=== PATIENT | female | born 1980 | race Caucasian/White ===

== ENCOUNTER 2016-12-30 11:51 | Emergency (ER) | payer MEDICAID ==
[~2016-12-30] VITALS: Ht 170.2 cm; Wt 81.6 kg
[~2016-12-30 11:51] MED LIST: DICY20TA55 PO; EST1 PO; ONDA4TAB5 PO
[2016-12-30 12:03] VITALS: BP 153/98; PULSE 88; RESP 16; TEMP 98.2; O2SAT 100
[2016-12-30 13:21] LABS: BASOPHILS % (AUTO) 0.7 % (0.0-2.0); EOSINOPHILS # (AUTO) 0.7 K/uL (0.0-0.4); EOSINOPHILS % (AUTO) 10.5 % (0.0-4.0); HEMATOCRIT 45.1 % (36-48); HEMOGLOBIN 14.9 g/dL (12.0-16.0); LYMPHOCYTES # (AUTO) 1.8 K/uL (1.0-5.5); LYMPHOCYTES % (AUTO) 28.1 % (20.5-51.5); MEAN CORPUSCULAR HEMOGLOBIN 27 pg (27-31); MEAN CORPUSCULAR HGB CONC 33 % (32-36); MEAN CORPUSCULAR VOLUME 82 fL (79.0-98.0); MONOCYTES # (AUTO) 0.4 K/uL (0.0-1.0); NEUTROPHILS # (AUTO) 3.7 K/uL (1.8-7.7); NEUTROPHILS % (AUTO) 54.7 % (40.0-70.0); PLATELET COUNT (AUTO) 160 K/uL (130-430); RED BLOOD CELL COUNT(AUTO) 5.53 MIL/uL (4.2-6.2); RED CELL DISTRIBUTION WIDTH 12.5 % (9.0-15.0); WHITE BLOOD COUNT (AUTO) 6.6 K/uL (4.8-10.8)
[2016-12-30 13:34] LABS: CALCIUM 10.5 mg/dL (8.4-11.0); CREATININE 0.87 mg/dL (0.55-1.30)
[2016-12-30 13:38] LABS: ALBUMIN 4.4 g/dL (3.4-4.8); TOTAL BILIRUBIN 0.3 mg/dL (0.0-1.0); TOTAL PROTEIN, SERUM 8.8 g/dL (6.4-8.3)
[2016-12-30] MEDS ORDERED: PROCHLORPERAZINE EDISYLATE 10 MG/2 ML VIAL IVP ONE (14:15)
[2016-12-30] MEDS ORDERED: KETOROLAC TROMETHAMINE 30 MG VIAL IVP ONE (14:15)
[2016-12-30 16:04] LABS: BILIRUBIN,URINE NEGATIVE (NEGATIVE); BLOOD, URINE NEGATIVE (NEGATIVE); CLARITY/URINE HAZY (CLEAR); COLOR,URINE YELLOW (YELLOW); GLUCOSE,URINE NEGATIVE (NEGATIVE); KETONES,URINE NEGATIVE (NEGATIVE); LEUKOCYTE ESTERASE ,URINE TRACE (NEGATIVE); NITRITE, URINE NEGATIVE (NEGATIVE); PH,URINE 5.5 (5.0-8.0); PROTEIN URINE NEGATIVE (NEGATIVE); UROBILINOGEN,URINE 0.2 (0.2-1.0)
[2016-12-30 16:39] LABS: BACTERIA,URINE MODERATE /HPF (None Seen); RBC,URINE NONE SEEN /HPF (0-3)
[2016-12-30 16:40] VITALS: BP 148/88; PULSE 79; RESP 16; TEMP 98.2; O2SAT 100
[2016-12-30 16:40] LABS: MUCUS,URINE 1+ /LPF (None Seen)
== END 2016-12-30 16:40 | disposition home or self-care (01) ==
LOC: SED 11:51
DX: K58.9 Irritable bowel syndrome, unspecified (principal); F41.9 Anxiety disorder, unspecified
CPT/HCPCS: 36415; 74176; 80053; 81000; 82150; 83690; 85025; 87086; 96374; 96375; 99285; J0780; J1885

== ENCOUNTER 2017-02-07 10:21 | Emergency (ER) | payer MEDICAID ==
[~2017-02-07] VITALS: Ht 170.2 cm; Wt 90.7 kg
[2017-02-07 10:28] VITALS: BP 137/96; PULSE 82; RESP 18; TEMP 97; O2SAT 97
--- NOTE | 2017-02-07 10:39 | NUR ---
Pt states that she ate some wax thinking it was dark chocolate. Mother with pt presents scented black wax in wafer form with a small piece bitten off. Pt c/o N/V/D. Denies c/o abdominal pain or discomfort. Denies ALOC or neurodeficits.
--- NOTE | 2017-02-07 10:39 | NUR ---
Patient to ER bed 6 to gown for evaluation. Side rails up. Report given to Mack MARTIN.
[2017-02-07] MEDS ORDERED: ONDANSETRON HCL 4 MG/2 ML VIAL IVP ONE (10:45)
--- NOTE | 2017-02-07 10:45 | NUR ---
# 20 gauge angiocath placed to LAC. Use of asceptic technique. Opsite placed over site. Blood return noted. Blood for lab drawn from site. Flushed with 10 cc of normal saline. No evidence of infiltration noted. Patient tolerated well.
[2017-02-07 10:57] LABS: BASOPHILS % (AUTO) 0.6 % (0.0-2.0); EOSINOPHILS # (AUTO) 0.7 K/uL (0.0-0.4); EOSINOPHILS % (AUTO) 9.6 % (0.0-4.0); HEMATOCRIT 43.4 % (36-48); HEMOGLOBIN 14.2 g/dL (12.0-16.0); LYMPHOCYTES # (AUTO) 2.2 K/uL (1.0-5.5); LYMPHOCYTES % (AUTO) 31.6 % (20.5-51.5); MEAN CORPUSCULAR HEMOGLOBIN 27 pg (27-31); MEAN CORPUSCULAR HGB CONC 33 % (32-36); MEAN CORPUSCULAR VOLUME 82 fL (79.0-98.0); MONOCYTES # (AUTO) 0.4 K/uL (0.0-1.0); MONOCYTES % (AUTO) 5.3 % (1.7-9.3); NEUTROPHILS # (AUTO) 3.8 K/uL (1.8-7.7); NEUTROPHILS % (AUTO) 52.9 % (40.0-70.0); PLATELET COUNT (AUTO) 188 K/uL (130-430); RED BLOOD CELL COUNT(AUTO) 5.26 MIL/uL (4.2-6.2); RED CELL DISTRIBUTION WIDTH 13.3 % (9.0-15.0); WHITE BLOOD COUNT (AUTO) 7.1 K/uL (4.8-10.8)
--- NOTE | 2017-02-07 10:59 | NUR ---
ER Dr. Levy at bedside examining patient.
[2017-02-07 11:01] LABS: ANION GAP 7 (5-15); CALCIUM 9.8 mg/dL (8.4-11.0); CHLORIDE 103 mmol/L (98-107); CREATININE 0.82 mg/dL (0.55-1.30); GLUCOSE 134 mg/dL (70-99); SODIUM SERUM 140 mmol/L (136-145); UREA NITROGEN, BLOOD 17 mg/dL (8-21)
[2017-02-07 11:03] LABS: GFR AFRICAN AMERICAN 103 mL/min (>90)
[2017-02-07 11:08] LABS: ALANINE AMINOTRANSFERASE 68 U/L (12-78); ALBUMIN 4.2 g/dL (3.4-4.8); ALCOHOL, BLOOD < 3 mg/dL (<10); ASPARTATE AMINOTRANSFERASE 29 U/L (10-37); SALICYLATE 1 mg/dL (3-30); TOTAL BILIRUBIN 0.3 mg/dL (0.0-1.0); TOTAL PROTEIN, SERUM 8.3 g/dL (6.4-8.3)
[2017-02-07 11:09] LABS: ACETAMINOPHEN < 1 ug/mL (1-30)
[2017-02-07] MEDS ORDERED: PROCHLORPERAZINE EDISYLATE 10 MG/2 ML VIAL IVP ONE (12:00)
[2017-02-07 12:35] VITALS: BP 131/62; PULSE 78; RESP 18; TEMP 98; O2SAT 97
--- NOTE | 2017-02-07 12:38 | NUR ---
Patient given written and verbal discharge instructions and verbalizes understanding. ER MD DR. CUEVAS discussed with patient the results and treatment provided. Patient in stable condition. ID arm band removed. IV catheter removed intact and dressing applied, no active bleeding. Rx of ZOFRAN given. Patient educated on pain management and to follow up with PMD. Pain Scale 0/10 Opportunity for questions provided and answered.
== END 2017-02-07 12:35 | disposition home or self-care (01) ==
LOC: SED 10:21
DX: T52.0X1A Toxic effect of petroleum products, accidental (unintentional), initial encounter (principal); F41.9 Anxiety disorder, unspecified; R03.0 Elevated blood-pressure reading, without diagnosis of hypertension; F84.0 Autistic disorder; F32.9 Major depressive disorder, single episode, unspecified; Y92.89 Other specified places as the place of occurrence of the external cause
CPT/HCPCS: 36415; 80053; 85025; 93005; 96374; 96375; 99285; G0480; G0481; G0482; J0780; J2405

== ENCOUNTER 2017-05-07 19:26 | Emergency (ER) | payer MEDICAID ==
[~2017-05-07] VITALS: Ht 170.2 cm; Wt 95.3 kg
[2017-05-07 19:33] VITALS: BP 145/90; PULSE 82; RESP 16; TEMP 97.5; O2SAT 99
--- NOTE | 2017-05-07 19:34 | NUR ---
Placed in H1 . Placed to gown for exam. Side rails up. Report given to VERONICA Hou.
[2017-05-07] MEDS ORDERED: LORazepam 1 MG TABLET PO ONE (20:00)
--- NOTE | 2017-05-07 20:00 | NUR ---
DR. SHELDON AT BEDSIDE EXAMINING THE PT.
--- NOTE | 2017-05-07 20:05 | NUR ---
PT. TO ER AAOx4 states that she had anxiety/ panic attack at home, c/o mild abdominal discomfort, clear speech follows commands, denies n/v/d denies headaches denies chest pain
[2017-05-07 21:05] LABS: BILIRUBIN,URINE NEGATIVE (NEGATIVE); BLOOD, URINE TRACE (NEGATIVE); CLARITY/URINE HAZY (CLEAR); COLOR,URINE YELLOW (YELLOW); GLUCOSE,URINE NEGATIVE (NEGATIVE); KETONES,URINE NEGATIVE (NEGATIVE); LEUKOCYTE ESTERASE ,URINE 1+ (NEGATIVE); NITRITE, URINE NEGATIVE (NEGATIVE); PROTEIN URINE NEGATIVE (NEGATIVE); UROBILINOGEN,URINE 0.2 (0.2-1.0)
[2017-05-07 21:09] LABS: RBC,URINE 0-3 /HPF (0-3)
[2017-05-07 21:10] LABS: BACTERIA,URINE MANY /HPF (None Seen); MUCUS,URINE 1+ /LPF (None Seen); WBC,URINE 80-100 /HPF (0-3)
[2017-05-07 21:15] VITALS: BP 121/74; PULSE 79; RESP 16; TEMP 98.1; O2SAT 99
--- NOTE | 2017-05-07 21:15 | NUR ---
Patient given written and verbal discharge instructions and verbalizes understanding. ER MD Dr. Newberry discussed with patient the results and treatment provided. Patient in stable condition. ID arm band removed. Rx of macrodantin given. Patient educated on pain management and to follow up with PMD. Pain Scale 0/10 Opportunity for questions provided and answered.
== END 2017-05-07 21:15 | disposition home or self-care (01) ==
LOC: SED 19:26
DX: F41.9 Anxiety disorder, unspecified (principal); N39.0 Urinary tract infection, site not specified; F32.9 Major depressive disorder, single episode, unspecified
CPT/HCPCS: 81000-TC; 87086; 99284

== ENCOUNTER 2018-03-24 10:36 | Emergency (ER) | payer MEDICAID ==
[~2018-03-24] VITALS: Ht 170.2 cm; Wt 90.7 kg
[2018-03-24 10:44] VITALS: BP_SYST 153
[2018-03-24 11:51] VITALS: BP_SYST 144
== END 2018-03-24 11:51 | disposition home or self-care (01) ==
LOC: SED 10:36
DX: B34.9 Viral infection, unspecified (principal); Z90.710 Acquired absence of both cervix and uterus
CPT/HCPCS: 71045; 99283

== ENCOUNTER 2018-07-14 14:05 | Emergency (ER) | payer MEDICAID ==
[~2018-07-14] VITALS: Ht 170.2 cm; Wt 90.7 kg
[2018-07-14 14:16] VITALS: BP_SYST 153
== END 2018-07-14 14:33 | disposition left against medical advice (07) ==
LOC: SED 14:05
DX: G89.29 Other chronic pain (principal); M54.9 Dorsalgia, unspecified; Z53.21 Procedure and treatment not carried out due to patient leaving prior to being seen by health care provider

== ENCOUNTER → 2019-02-28 | Emergency (ER) | payer MEDICARE, OTHER ==
[~2019-02-28] VITALS: Ht 170.2 cm; Wt 93.4 kg
[~2019-02-28] MED LIST changes: +NACL 0.9% 1,000 ML IV ONE
[2019-02-28 16:56] VITALS: BP_SYST 126
[2019-02-28 19:06] VITALS: BP_SYST 126
== END | disposition still patient (30) ==
LOC: SED 16:51
DX: E11.65 Type 2 diabetes mellitus with hyperglycemia (principal); R03.0 Elevated blood-pressure reading, without diagnosis of hypertension; F41.9 Anxiety disorder, unspecified; F32.9 Major depressive disorder, single episode, unspecified; Z90.710 Acquired absence of both cervix and uterus; Z79.899 Other long term (current) drug therapy
CPT/HCPCS: 82962; 96360; 99283; J7030

== ENCOUNTER 2019-08-12 00:07 | Emergency (ER) | payer MEDICARE, OTHER ==
[~2019-08-12] VITALS: Ht 170.2 cm; Wt 81.6 kg
[~2019-08-12 00:07] MED LIST changes: -NACL 0.9% 1,000 ML IV ONE
[2019-08-12 00:12] VITALS: BP_SYST 118
--- NOTE | 2019-08-12 00:12 | NUR ---
Patient to ER bed 03 to gown for evaluation. Side rails up.
--- NOTE | 2019-08-12 00:15 | NUR ---
Patient brought to ER via ambulance BLS for medical evaluation. Patient states she bumped head while opening a closet door. Patient states laceration to left frontal head. Pain to site 3/10. No active bleeding noted. Patient has hx of autism.
--- NOTE | 2019-08-12 00:25 | NUR ---
SHERYL Mccullough at bedside for medical evaluation.
[2019-08-12] MEDS ORDERED: ACETAMINOPHEN 325 MG TABLET PO ONE (00:45)
[2019-08-12] MEDS ORDERED: BACITRACIN 1 GM OINT TP ONE (00:45)
[2019-08-12 01:20] VITALS: BP_SYST 110
--- NOTE | 2019-08-12 01:20 | NUR ---
Patient given written and verbal discharge instructions and verbalizes understanding. ER MD discussed with patient the results and treatment provided. Patient in stable condition. ID arm band removed. IV catheter removed intact and dressing applied, no active bleeding. No Rx given. Patient educated on pain management and to follow up with PMD. Pain Scale 0/10. Opportunity for questions provided and answered.
== END 2019-08-12 01:20 | disposition home or self-care (01) ==
LOC: SED 00:07
DX: S01.01XA Laceration without foreign body of scalp, initial encounter (principal); E07.9 Disorder of thyroid, unspecified; F41.9 Anxiety disorder, unspecified; F32.9 Major depressive disorder, single episode, unspecified; Z79.899 Other long term (current) drug therapy; Z90.710 Acquired absence of both cervix and uterus; W22.8XXA Striking against or struck by other objects, initial encounter; Y93.89 Activity, other specified; Y92.89 Other specified places as the place of occurrence of the external cause; Y99.8 Other external cause status
CPT/HCPCS: 99283

== ENCOUNTER 2020-12-17 19:19 | Emergency (ER) | payer MEDICARE, OTHER, SELFPAY ==
[~2020-12-17] VITALS: Ht 167.6 cm; Wt 81.6 kg
[2020-12-17 19:33] VITALS: BP_SYST 118
[2020-12-17 20:12] VITALS: BP_SYST 118
== END 2020-12-17 20:12 | disposition home or self-care (01) ==
LOC: SED 19:19
DX: U07.1 COVID-19 (principal); F41.9 Anxiety disorder, unspecified; Z79.899 Other long term (current) drug therapy
CPT/HCPCS: 99283; C9803; U0003

== ENCOUNTER 2021-11-04 11:17 | Emergency (ER) | payer MEDICARE, OTHER ==
[~2021-11-04] VITALS: Ht 170.2 cm; Wt 90.7 kg
[2021-11-04 11:47] VITALS: BP_SYST 130
[2021-11-04] MEDS ORDERED: LIDOCAINE PATCH 5% 1 EA TP ONE (13:15)
[2021-11-04] MEDS ORDERED: IBUPROFEN 600 MG TABLET PO ONE (13:15)
[2021-11-04] MEDS ORDERED: ACETAMINOPHEN 500 MG TABLET PO ONE (13:15)
[2021-11-04] MEDS ORDERED: IBUP800T54 PO (14:30)
[2021-11-04 15:04] VITALS: BP_SYST 121
== END 2021-11-04 15:04 | disposition home or self-care (01) ==
LOC: SED 11:17
DX: M75.41 Impingement syndrome of right shoulder (principal); Z79.899 Other long term (current) drug therapy
CPT/HCPCS: 99284